=== PATIENT | female | born 1995 | race Two or more races ===

== ENCOUNTER 2024-09-22 13:23 | Emergency (ER) | payer OTHER ==
[~2024-09-22] VITALS: Ht 162.6 cm; Wt 58.5 kg
[2024-09-22] MEDS ORDERED: METHYLPREDNISOLONE SOD SUCC 40 MG VIAL IM ONE (14:45)
[2024-09-22] MEDS ORDERED: CEFTRIAXONE SODIUM 1,000 MG VIAL IM ONE (14:45)
[2024-09-22] MEDS ORDERED: MONTELUKAST SODIUM 10 MG TABLET PO ONE (14:45)
[2024-09-22] MEDS ORDERED: IPRATROPIUM BROMIDE 0.5 MG/2.5 ML AMPUL.NEB IH ONE (14:45)
[2024-09-22] MEDS ORDERED: BENZONATATE 200 MG CAPSULE PO ONE (14:45)
[2024-09-22] MEDS ORDERED: LEVALBUTEROL HCL 1.25 MG/3 ML SOLUTION IH ONE (14:45)
[2024-09-22] MEDS ORDERED: METHYLPREDNISOLONE SOD SUCC 40 MG VIAL ONE (16:00)
[2024-09-22] MEDS ORDERED: CEFTRIAXONE SODIUM 1,000 MG VIAL ONE (16:00)
[2024-09-22 16:26] LABS: HEMATOCRIT 38.9 % (36.0-45.00); HEMOGLOBIN 13.1 g/dL (12.0-15.00); MEAN CELL VOLUME 87.6 fL (80.00-100.00); MEAN CORPUSCULAR HEMOGLOBIN 29.4 pg (27.00-32.0); MEAN CORPUSCULAR HGB CONC 33.6 g/dl (32.0-36.0); PLATELET COUNT 429 K/uL (150-450); RED BLOOD COUNT 4.44 M/uL (4.00-6.00); RED CELL DISTRIBUTION WIDTH 12.7 % (11.5-14.5)
== END 2024-09-22 17:24 | disposition home or self-care (01) ==
LOC: ER 13:25
PROVIDERS: General Practice
DX: R06.02 Shortness of breath (principal); R05.8 Other specified cough; J06.9 Acute upper respiratory infection, unspecified; Z20.822 Contact with and (suspected) exposure to COVID-19